=== PATIENT | female | born 1970 | race Two or more races ===

== ENCOUNTER → 2016-12-01 | Outpatient (CLI) | payer OTHER ==
[2014-10-22 00:28] VITALS: BP 134/76
[~2016-12-01] MED LIST: GLIM2TAB2 PO; INSU100V8 SQ; LISI2.5T PO; METF500T4 PO
--- NOTE | 2016-12-01 11:47 | KCIC ---
ABDOMEN LTD History: Right flank pain Comparison: None. Findings: Multiple sonographic images of the abdomen are submitted. There is no abnormality of the visualized pancreas. No free fluid is demonstrated. Visualized abdominal aortic caliber is within normal limits up to 2.1 cm proximally, distally obscured by bowel gas. Right kidney measured 12 x 4.9 x 6.5 cm, no hydronephrosis. There is coarsening of the echotexture of the liver. Right lobe liver measured 20.7 cm longitudinal. No focal hepatic mass is demonstrated. There is normal color flow of the main portal vein. The gallbladder is present without intraluminal abnormality, wall thickening, pericholecystic fluid. Common bile back is within normal limits at 0.2 cm. IMPRESSION: 1. There is hepatic steatosis and hepatomegaly. Electronically signed by: Ky Jennings MD (12/01/2016 11:43 AM) [facility]
== END | disposition home or self-care (01) ==
LOC: KCIC US 08:45
PROVIDERS: ATTEND Family Medicine
DX: K76.0 Fatty (change of) liver, not elsewhere classified (principal)
CPT/HCPCS: 76705

== ENCOUNTER 2017-10-23 01:34 | Emergency (ER) | payer OTHER ==
[2017-10-23 01:59] LABS: ADD MAN DIFF? NO
[2017-10-23 02:01] LABS: BASO # 0.1 x10^3/uL (0.0-0.2); BASO % 1 % (0-3); EOS # 0.3 x10^3/uL (0.0-0.7); EOS % 3 % (0-3); HEMATOCRIT 37.9 % (36.0-47.0); HEMOGLOBIN 12.8 g/dL (12.0-15.5); LYMPH # 4.6 x10^3/uL (1.0-4.8); LYMPH % 39 % (24-48); MEAN CORPUSCULAR HEMOGLOBIN 30 pg (25-35); MEAN CORPUSCULAR HGB CONC 34 g/dL (31-37); MEAN CORPUSCULAR VOLUME 89 fL (79-100); MONO # 0.9 x10^3/uL (0.0-1.1); MONO % 8 % (0-9); NEUT % 51 % (31-73); PLATELET COUNT 387 x10^3/uL (140-400); RED BLOOD COUNT 4.25 x10^6/uL (3.50-5.40); WHITE BLOOD COUNT 11.8 x10^3/uL (4.0-11.0)
[2017-10-23 02:21] LABS: URINE HCG POC HCG NEGATIVE (Negative)
[2017-10-23] MEDS: fentaNYL PF VIAL 100 MCG/2 ML VIAL IV (02:21)
[2017-10-23] MEDS: IV NORMAL SALINE 1000ML BAG 1,000 ML IV (02:21)
[2017-10-23 02:25] LABS: ANION GAP 10 (6-14); BLOOD UREA NITROGEN 12 mg/dL (7-20); BUN/CREATININE RATIO 13 (6-20); CALCIUM 8.8 mg/dL (8.5-10.1); CARBON DIOXIDE 25 mmol/L (21-32); CHLORIDE 102 mmol/L (98-107); CREATININE 0.9 mg/dL (0.6-1.0); GFR 66.8; GLUCOSE 330 mg/dL (70-99); POTASSIUM 4.2 mmol/L (3.5-5.1); SODIUM 137 mmol/L (136-145)
[2017-10-23 02:26] LABS: BILIRUBIN,URINE NEGATIVE (NEG); CLARITY,URINE CLEAR; COLOR,URINE YELLOW; GLUCOSE,URINE >=1000 mg/dL (NEG); NITRITE,URINE NEGATIVE (NEG); PH,URINE 7.5; PROTEIN,URINE NEGATIVE (NEG-TRACE); UROBILINOGEN,URINE 0.2 mg/dL (0.2 mg/dL)
[2017-10-23] MEDS ORDERED: IV NORMAL SALINE 1000ML BAG 1,000 ML IV (02:30)
[2017-10-23 02:31] LABS: ALBUMIN 3.2 g/dL (3.4-5.0); ALBUMIN/GLOBULIN RATIO 0.7 (1.0-1.7); ALK PHOS 95 U/L (46-116); ALT (SGPT) 60 U/L (14-59); AST (SGOT) 33 U/L (15-37); LIPASE 225 U/L (73-393); MAGNESIUM 1.8 mg/dL (1.8-2.4); TOTAL BILIRUBIN 0.2 mg/dL (0.2-1.0); TOTAL PROTEIN 7.6 g/dL (6.4-8.2)
[2017-10-23 02:32] LABS: BACTERIA,URINE FEW /HPF (0-FEW); RBC,URINE 0 /HPF (0-2); SQUAMOUS EPITHELIAL CELL,UR MOD /LPF; WBC,URINE OCC /HPF (0-4); YEAST,URINE PRESENT /HPF
[2017-10-23 02:33] LABS: TROPONINI < 0.017 ng/mL (0.000-0.055)
[2017-10-23 02:37] LABS: NT-PRO BNP < 5 pg/mL (0-124)
[2017-10-23] MEDS ORDERED: CONTRAST GIVEN. MC (02:45)
[2017-10-23] MEDS: IOHEXOL 300 MG/ML 100ML VIAL. IV (03:23)
[2017-10-23] MEDS: ORPHENADRINE CITRATE 60 MG/2 ML VIAL. IV (05:06)
== END 2017-10-23 05:15 | disposition home or self-care (01) ==
LOC: ER 01:34
DX: M54.6 Pain in thoracic spine (principal); E11.9 Type 2 diabetes mellitus without complications
CPT/HCPCS: 36415; 71275; 80053; 81001; 81025; 83690; 83735; 83880; 84484; 85025; 93005; 96374; 96375; 99285-25; J2360; J3010; J7030; Q9967

== ENCOUNTER 2020-11-14 06:35 | Emergency (ER) | payer OTHER ==
[~2020-11-14] VITALS: Ht 167.6 cm; Wt 67.3 kg
[~2020-11-14 06:35] MED LIST changes: -GLIM2TAB2 PO; +GLIM2TAB7 PO; -LISI2.5T PO; +LISI2.5T12 PO; +METF500T16 PO; -METF500T4 PO; +ORPH100T PO
[2020-11-14 07:10] VITALS: BP 147/72
[2020-11-14] MEDS ORDERED: IV NORMAL SALINE 1000ML BAG 1,000 ML IV ONE (07:15)
[2020-11-14] MEDS ORDERED: ONDANSETRON PF 4 MG/2 ML VIAL. IVP ONE (07:15)
[2020-11-14] MEDS ORDERED: MECLIZINE HCL 12.5 MG TABLET. PO ONE (07:15)
[2020-11-14 07:19] LABS: BASO # 0.1 x10^3/uL (0.0-0.2); BASO % 1 % (0-3); EOS # 0.2 x10^3/uL (0.0-0.7); EOS % 2 % (0-3); HEMATOCRIT 33.8 % (36.0-47.0); HEMOGLOBIN 11.2 g/dL (12.0-15.5); LYMPH # 4.2 x10^3/uL (1.0-4.8); LYMPH % 39 % (24-48); MEAN CORPUSCULAR HEMOGLOBIN 28 pg (25-35); MEAN CORPUSCULAR HGB CONC 33 g/dL (31-37); MEAN CORPUSCULAR VOLUME 83 fL (79-100); MONO # 0.9 x10^3/uL (0.0-1.1); MONO % 8 % (0-9); NEUT # 5.3 x10^3/uL (1.8-7.7); NEUT % 50 % (31-73); PLATELET COUNT 408 x10^3/uL (140-400); RED BLOOD COUNT 4.09 x10^6/uL (3.50-5.40); RED CELL DISTRIBUTION WIDTH 16.2 % (11.5-14.5); WHITE BLOOD COUNT 10.6 x10^3/uL (4.0-11.0)
--- NOTE | 2020-11-14 07:20 | PHYS DOC ---
Past Medical History Past Medical History: Diabetes-Type II Past Surgical History: No Surgical History Smoking Status: Never Smoker Alcohol Use: None Drug Use: None General Adult EDM: Chief Complaint: DIZZY/LIGHT HEADED HPI: HPI: Patient is a 50 year old female with history of DM on glyburide and insulin who presents with feeling lightheaded, nauseous, and generally weak at 3am this morning. [place] fine prior to bed last night. Has never felt this way before. She does feel dizzy like the room is spinning. Denies any pain, specifically chest, headache, or abdominal pain. Denies fever/chills. Has not been vaccinated against Covid. Denies sick contacts. BG in 300's for EMS. She denies double vision, speech difficulty, focal weakness/numbness. She does feel like coordination is more difficult since the dizziness began. Review of Systems: Review of Systems: Constitutional: + diaphoresis and generalized weakness. Denies fever or chills. [] Eyes: Denies change in visual acuity. [] HENT: Denies nasal congestion or sore throat. [] Respiratory: Denies cough or shortness of breath. [] Cardiovascular: Denies chest pain or edema. [] GI: + N/V. Denies abdominal pain, bloody stools or diarrhea. [] : Denies dysuria. [] Musculoskeletal: Denies back pain or joint pain. [] Integument: Denies rash. [] Neurologic: + Dizziness. Denies headache, focal weakness or sensory changes. [] Endocrine: Denies polyuria or polydipsia. [] Lymphatic: Denies swollen glands. [] Psychiatric: Denies depression or anxiety. [] Heart Score: C/O Chest Pain: No Risk Factors: Risk Factors: DM, Current or recent (<one month) smoker, HTN, HLP, family history of CAD, obesity. Risk Scores: Score 0 - 3: 2.5% MACE over next 6 weeks - Discharge Home Score 4 - 6: 20.3% MACE over next 6 weeks - Admit for Clinical Observation Score 7 - 10: 72.7% MACE over next 6 weeks - Early Invasive Strategies Allergies: Allergies: Allergies Coded Allergies Type Severity Reaction Last Updated Verified No Known Drug Allergies 09/28/13 No Physical Exam: PE: Constitutional: Diaphoretic. Ill appearing. Not in distress. [] HENT: Normocephalic, atraumatic, bilateral external ears normal, oropharynx moist, no oral exudates, nose normal. [] Eyes: PERRLA, EOMI, conjunctiva normal, no discharge. [] Neck: Normal range of motion, no tenderness, supple, no stridor. [] Cardiovascular:Heart rate regular rhythm, no murmur [] Lungs & Thorax: Bilateral breath sounds clear to auscultation [] Abdomen: Bowel sounds normal, soft, no tenderness, no masses, no pulsatile masses. [] Skin: Warm, dry, no erythema, no rash. [] Back: No tenderness, no CVA tenderness. [] Extremities: No tenderness, no cyanosis, no clubbing, ROM intact, no edema. [] Neurologic: Alert and oriented X 3, Face symmetric. No nystagmus. No skew. No corrective saccade with head impulse. Some mild dysmetria with finger to nose. Normal upper and lower extremity strength and sensation. [] Psychologic: Affect normal, judgement normal, mood normal. [] Current Patient Data: Labs: Laboratory Tests Test 11/14/20 06:58 Glucose (Fingerstick) 330 mg/dL (70-99) H Vital Signs: Vital Signs Date Time Temp Pulse Resp B/P (MAP) Pulse Ox O2 Delivery O2 Flow Rate FiO2 11/14/20 06:39 98.2 103 22 181/85 (129) 100 Room Air 98.2 EKG: EKG: Sinus rhythm. Normal axis. rate 104. no acute ischemic changes. [] Radiology/Procedures: Radiology/Procedures: CTA head/neck[] Impression: [facility] [address] [place], [place] [id number] IMAGING REPORT Signed PATIENT: FRANCE FARR ACCOUNT: [id number] : 1970 LOCATION: ER AGE: 50 SEX: F EXAM STATUS: PRE ER ORD. PHYSICIAN: BG DESIR MD REASON: vertigo PROCEDURE: CT HEAD WO CONTRAST EXAM: CT HEAD WITHOUT CONTRAST. HISTORY: Vertigo. TECHNIQUE: Computed tomography of the head was performed without intravenous contrast. One or more of the following individualized dose reduction techniques were utilized for this examination: 1. Automated exposure control. 2. Adjustment of the mA and/or kV according to patient size. 3. Use of iterative reconstruction technique. COMPARISON: None. FINDINGS: There is no intracranial hemorrhage. Pena-white differentiation is preserved. The ventricles are normal in size and position. The visualized paranasal sinuses appear clear. The orbits are unremarkable. The temporal bones are unremarkable. The calvarium reveals no suspicious lesions. IMPRESSION: 1. No acute intracranial findings. Electronically signed by: Zuly Boudreaux MD (11/14/2020 8:27 AM) [id number] DICTATED and SIGNED BY: BG BOUDREAUX MD DATE: 11/14/20 [id number] [facility] [address] [place] [address] IMAGING REPORT Signed PATIENT: FRANCE FARR ACCOUNT: [id number] : 1970 LOCATION: ER AGE: 50 SEX: F EXAM STATUS: PRE ER ORD. PHYSICIAN: BG DESIR MD REASON: vertigo PROCEDURE: CT ANGIOGRAPHY HEAD AND NECK EXAM: 1. CTA HEAD WITH AND WITHOUT CONTRAST. 2. CTA NECK WITH AND WITHOUT CONTRAST. HISTORY: Vertigo. TECHNIQUE: Computed tomographic angiography of the head and neck was performed before and after the intravenous administration of iodinated contrast. Three- dimensional reconstructions were also performed. One or more of the following individualized dose reduction techniques were utilized for this examination: 1. Automated exposure control. 2. Adjustment of the mA and/or kV according to patient size. 3. Use of iterative reconstruction technique. COMPARISON: None. FINDINGS: Angiographic findings: The aortic arch has a typical branching pattern. There is no arch vessel stenosis. Both common carotid arteries are patent without stenosis. Uncalcified plaquing results in 50% stenosis of the right proximal cervical internal carotid artery. There is no significant left internal carotid artery stenosis. The external carotid systems are patent. The vertebral arteries are patent. The basilar artery is patent. Both posterior cerebral arteries are patent. The posterior communicating arteries are visualized. A small excrescence along the posterior medial aspect of the left cavernous sinus internal carotid artery measures 1.5 mm and most likely reflects an inf undibulum. Other regions of contrast density about the cavernous internal carotid arteries likely reflect venous contamination. There is no intracranial internal carotid artery stenosis. The middle cerebral arteries are patent. The anterior cerebral arteries are patent. The anterior communicating artery is visualized. Nonangiographic findings: There is no intracranial hemorrhage. Pena-white differentiation is preserved. The ventricles are normal in size and position. The paranasal sinuses appear clear. The orbits are unremarkable. The temporal bones are unremarkable. Bone windows reveal no suspicious lesions. The lung apices demonstrate no acute abnormality. The parotid glands and submandibular glands are unremarkable. The thyroid gland demonstrates no suspicious lesions. There are no laryngeal or pharyngeal masses. There are no pathologically enlarged lymph nodes. IMPRESSION: 1. 50% stenosis of the right proximal cervical internal carotid artery. 2. 1.5 mm infundibulum versus tiny aneurysm along the medial aspect of the left cavernous sinus internal carotid artery. Follow-up could be considered in 1-2 years. 3. No hemodynamically significant intracranial stenosis. PQRS Compliance Statement - Stenosis calculations for CT, MR and conventional angiography are based upon measurement of the distal ICA diameter in accordance with the NASCET methodology. Stenosis calculations for carotid ultrasound studies are derived from validated velocity criteria which are known to correlate with the NASCET methodology. Electronically signed by: Zuly Boudreaux MD (11/14/2020 8:55 AM) [id number] DICTATED and SIGNED BY: BG BOUDREAUX MD DATE: 11/14/20 [id number] 0 Course & Med Decision Making: Course & Med Decision Making Pertinent Labs and Imaging studies reviewed. (See chart for details) Patient is a 50-year-old female who presents with acute onset vertigo, nausea, vomiting. Has been constant since onset at 3 AM. On exam has some mild dysmetria, I could not identify a correction saccade on head impulse testing. I do not feel that I can completely differentiate this as peripheral vertigo by exam and history. She does have stroke risk factors with poorly managed diabetes. Given these findings I will proceed with CTA head and neck to evaluate for posterior stroke. We will treat with normal saline, Zofran, meclizine. Depending on CT imaging findings and clinical course will determine if further stroke work-up is required. Other ddx considered is DKA, will check labs. Also considered COVID, swabs sent. 0720 Patient is feeling much better after treatment. CTA did not show any positive lesions. It did show a 50% carotid stenosis and a potential aneurysm, that will require follow-up. Given that she no longer has the symptoms, stroke becomes considerably less likely. Feel that she is safe for discharge with a prescription for meclizine and outpatient follow-up [address] Disclaimer: Kathia Disclaimer: This electronic medical record was generated, in whole or in part, using a voice recognition dictation system. Departure Departure Impression: Primary Impression: Dizziness Additional Impressions: Carotid artery stenosis Carotid artery aneurysm Disposition: HOME / SELF CARE / HOMELESS Condition: STABLE Referrals: UNKNOWN PCP NAME (PCP) Since you do not have a PCP, please call the number for the [facility] at [phone]. Additional Instructions: Your work-up today was reassuring. Your CT scan did show a narrowing area in your carotid artery, as well as another area that will need to be followed up in 1-2 years. Please contact the number provided to establish with a primary care doctor. This will be important to get the follow-up that you need. For symptoms you can take meclizine 25 mg every 6 hours as needed for dizziness. If symptoms worsen, you develop severe headache, or other new/concerning symptoms arise please return to the emergency department for reevaluation. BG DESIR MD Nov 14, 2020 07:20
[2020-11-14 07:32] LABS: CALCIUM 8.6 mg/dL (8.5-10.1); CREATININE 0.8 mg/dL (0.6-1.0); GFR 75.6; POTASSIUM 3.6 mmol/L (3.5-5.1)
[2020-11-14 07:39] LABS: ALBUMIN 3.3 g/dL (3.4-5.0); ALBUMIN/GLOBULIN RATIO 0.8 (1.0-1.7); TOTAL BILIRUBIN 0.2 mg/dL (0.2-1.0); TOTAL PROTEIN 7.3 g/dL (6.4-8.2)
[2020-11-14] MEDS ORDERED: CONTRAST GIVEN. MC PRN (07:45)
[2020-11-14] MEDS ORDERED: IOHEXOL 300 MG/ML 100ML VIAL. IV ONE (07:45)
--- NOTE | 2020-11-14 08:30 | RAD ---
EXAM: CT HEAD WITHOUT CONTRAST. HISTORY: Vertigo. TECHNIQUE: Computed tomography of the head was performed without intravenous contrast. One or more of the following individualized dose reduction techniques were utilized for this examination: 1. Automated exposure control. 2. Adjustment of the mA and/or kV according to patient size. 3. Use of iterative reconstruction technique. COMPARISON: None. FINDINGS: There is no intracranial hemorrhage. Pena-white differentiation is preserved. The ventricle s are normal in size and position. The visualized paranasal sinuses appear clear. The orbits are unremarkable. The temporal bones are un remarkable. The calvarium reveals no suspicious lesions. IMPRESSION: 1. No acute intracranial findings. Electronically signed by: Zuly Boudreaux MD (11/14/2020 8:27 AM) [id number]
--- NOTE | 2020-11-14 08:58 | RAD ---
EXAM: 1. CTA HEAD WITH AND WITHOUT CONTRAST. 2. CTA NECK WITH AND WITHOUT CONTRAST. HISTORY: Vertigo. TECHNIQUE: Computed tomographic angiography of the head and neck was performed before and after the i ntravenous administration of iodinated contrast. Three-dimensional reconstructions were also performe d. One or more of the following individualized dose reduction techniques were utilized for this exami nation: 1. Automated exposure control. 2. Adjustment of the mA and/or kV according to patient size. 3. Use of iterative reconstruction technique. COMPARISON: None. FINDINGS: Angiographic findings: The aortic arch has a typical branching pattern. There is no arch vessel steno sis. Both common carotid arteries are patent without stenosis. Uncalcified plaquing results in 50% stenosi s of the right proximal cervical internal carotid artery. There is no significant left internal carot id artery stenosis. The external carotid systems are patent. The vertebral arteries are patent. The basilar artery is patent. Both posterior cerebral arteries are patent. The posterior communicatin g arteries are visualized. A small excrescence along the posterior medial aspect of the left cavernous sinus internal carotid ar leonel measures 1.5 mm and most likely reflects an infundibulum. Other regions of contrast density abou t the cavernous internal carotid arteries likely reflect venous contamination. There is no intracrani al internal carotid artery stenosis. The middle cerebral arteries are patent. The anterior cerebral a rteries are patent. The anterior communicating artery is visualized. Nonangiographic findings: There is no intracranial hemorrhage. Pena-white differentiation is preserve d. The ventricles are normal in size and position. The paranasal sinuses appear clear. The orbits are unremarkable. The temporal bones are unremarkable. Bone windows reveal no suspicious lesions. The lung apices demonstrate no acute abnormality. The parotid glands and submandibular glands are unremarkable. The thyroid gland demonstrates no suspi cious lesions. There are no laryngeal or pharyngeal masses. There are no pathologically enlarged lymph nodes. IMPRESSION: 1. 50% stenosis of the right proximal cervical internal carotid artery. 2. 1.5 mm infundibulum versus tiny aneurysm along the medial aspect of the left cavernous sinus inter nal carotid artery. Follow-up could be considered in 1-2 years. 3. No hemodynamically significant intracranial stenosis. PQRS Compliance Statement - Stenosis calculations for CT, MR and conventional angiography are based u juan antonio measurement of the distal ICA diameter in accordance with the NASCET methodology. Stenosis calcu lations for carotid ultrasound studies are derived from validated velocity criteria which are known t o correlate with the NASCET methodology. Electronically signed by: Zuly Boudreaux MD (11/14/2020 8:55 AM) [id number]
[2020-11-14] MEDS ORDERED: MECL-75 PO (10:33)
--- NOTE | 2020-11-14 18:16 | NUR ---
IP: Attempted to contact pt concerning covid results. No answer, no voicemail.
--- NOTE | 2020-11-15 02:01 | EKG ---
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
--- NOTE | 2020-11-26 10:59 | EKG ---
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
== END 2020-11-14 10:57 | disposition home or self-care (01) ==
LOC: ER 06:35
DX: I65.22 Occlusion and stenosis of left carotid artery (principal); I72.0 Aneurysm of carotid artery; R42 Dizziness and giddiness; E11.9 Type 2 diabetes mellitus without complications; Z20.822 Contact with and (suspected) exposure to COVID-19
CPT/HCPCS: 36415; 70450; 70496; 70498; 80053; 82962; 84484; 85025; 87426; 93005; 96361; 96374; 99285; J2405; J7030; J8597; Q9967; U0003; U0005